=== PATIENT | female | born 1935 | race Caucasian/White ===

== ENCOUNTER 2018-01-19 11:16 | Outpatient (CLI) | payer MEDICARE ==
--- NOTE | 2018-01-19 13:00 | RAD ---
RIGHT FOOT THREE VIEWS: HISTORY: Foot pain. FINDINGS: Tiny enthesophyte from the plantar calcaneus. Mild degenerative changes in the intertarsal joints. 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 There is no evidence of fracture or acute osseous abnormality. IMPRESSION: Mild degenerative changes, as described. POS: [facility]
--- NOTE | 2018-01-19 13:06 | RAD ---
RIGHT WRIST THREE VIEWS: HISTORY: Wrist pain. FINDINGS: The bones show osteopenia throughout. There is evidence of a healing fracture involving the distal f ifth metacarpal, with periosteal reaction involving the neck and head of this metacarpal. Severe degenerative changes at the carpometacarpal joints, most severe at the first carpometacarpal j oint. Severe degenerative changes at the radial carpal and at the intercarpal joints. Widening of t he scapholunate, indicating ligamentous instability. IMPRESSION: 1. Evidence of healing fracture involving the distal fifth metacarpal. 2. 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 POS: [facility]
--- NOTE | 2018-01-19 13:07 | RAD ---
RIGHT HAND 3 VIEWS: HISTORY: Hand pain. FINDINGS: There is a healing fracture involving the head and neck of the 5th metacarpal with surrounding perios teal reaction. Severe degenerative change of the 1st carpometacarpal joint. Moderate degenerative change at the MCP joints, most severe involving the MCP joint of the index finger. Moderate degenerative changes invo lving the DIP joints and PIP joints of all digits. IMPRESSION: 1. Healing fracture involving the distal 5th metacarpal. 2. Prominent degenerative changes of the right hand as described. POS: [facility]
== END 2018-01-19 11:17 | disposition home or self-care (01) ==
LOC: RAD-FRANK 11:16
PROVIDERS: ATTEND Nurse Practitioner Family
DX: M79.641 Pain in right hand (principal); M79.671 Pain in right foot; M18.11 Unilateral primary osteoarthritis of first carpometacarpal joint, right hand; M19.041 Primary osteoarthritis, right hand; S62.306D Unspecified fracture of fifth metacarpal bone, right hand, subsequent encounter for fracture with routine healing; M19.031 Primary osteoarthritis, right wrist; M19.071 Primary osteoarthritis, right ankle and foot

== ENCOUNTER 2018-02-10 14:46 | Outpatient (CLI) | payer MEDICARE ==
--- NOTE | 2018-02-10 15:46 | RAD ---
THREE VIEWS OF THE RIGHT FOOT: 02/10/18 COMPARISON: 01/19/18. HISTORY: Right foot pain. FINDINGS: Three views right foot shows no evidence of acute fracture or dislocation. Mild degenerative changes are seen in the right foot. No focal soft tissue swelling is seen. IMPRESSION: No evidence of acute osseous abnormality. POS: [facility]
== END 2018-02-10 14:47 | disposition home or self-care (01) ==
LOC: RAD-FRANK 14:46
PROVIDERS: ATTEND Nurse Practitioner Family
DX: M79.671 Pain in right foot (principal)

== ENCOUNTER 2018-03-30 09:55 | Outpatient (CLI) | payer MEDICARE, OTHER ==
--- NOTE | 2018-03-30 11:38 | RAD ---
THREE VIEWS OF THE RIGHT FOOT: Date: 03-30-18 Comparison: 02-10-18 History: Foot pain. FINDINGS: There is enthesophyte formation at the origin of the planar aponorosis. There is mild midfoot degener ative change. There is no displaced fracture or evidence of dislocation seen. There are scattered degenerative changes involving the interphalangeal joint. There has been no significant interval change when compared to the prior exam. Of note, the patient h as had radiographs of the right foot on 02-10-18 and 01-19-18 which did not demonstrate acute findings . IMPRESSION: Stable three view examination of the right foot. Given persistent right foot pain and unremarkable ra diographs, MRI is suggested to evaluate for a radio-occult abnormality to explain the patient's clini marybel symptoms. POS: [facility]
--- NOTE | 2018-03-30 11:47 | RAD ---
THREE VIEWS RIGHT HAND: Date: 03-30-18 Comparison: 01-19-18 History: Pain, re-evaluate hand. FINDINGS: Prior examination demonstrated a fracture at the base of the fifth metacarpal head which appears heal ed with new callus formation. No discrete fracture line persists. 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 Severe degenerative change is noted at the first carpal metacarpal joint as well as the firs t interphalangeal joint and the second metacarpal phalangeal joint, stable. No new fracture or eviden ce of dislocation are seen. There are severe degenerative changes involving scattered proximal and di stal interphalangeal joints of the second through fifth fingers. IMPRESSION: Stable prominent degenerative changes of the right hand. Findings suggesting a healed fracture at the base of the fifth metacarpal head. POS: [facility]
== END 2018-03-30 09:56 | disposition home or self-care (01) ==
LOC: RAD-FRANK 09:55
PROVIDERS: ATTEND Nurse Practitioner Family
DX: M79.671 Pain in right foot (principal); M19.041 Primary osteoarthritis, right hand